=== PATIENT | male | born 1955 | race Caucasian/White ===

== ENCOUNTER 2016-09-24 09:54 | Observation (INO) | payer OTHER ==
[2016-09-24 10:06] VITALS: BMI 35.9
[2016-09-24 10:20] VITALS: TEMP 98.4
[2016-09-24] MEDS ORDERED: Nitroglycerin 2% Ointment Foilpak UD TOP STA (10:29)
[2016-09-24] MEDS ORDERED: Nitroglycerin 2% Ointment Foilpak UD TOP ONE (10:34)
[2016-09-24] MEDS ORDERED: Enoxaparin 40 mg Syringe SC STA (10:36)
[2016-09-24 10:43] LABS: BASO # 0.1 K/uL (0.0-0.2); HEMATOCRIT 37.1 % (35.0-51.0); LYMPH # 2.2 K/uL (1.0-4.3)
[2016-09-24 10:51] LABS: BASO % 0.9 % (0.0-2.0); EOS % 8.7 % (0.0-4.0); LYMPH % 19.9 % (20.0-40.0); MEAN CORPUSCULAR HEMOGLOBIN 22.2 pg (27.0-31.0); MEAN CORPUSCULAR HGB CONC 31.7 g/dL (33.0-37.0); MONO # 0.8 K/uL (0.0-0.8); MONO % 7.1 % (0.0-10.0); RED CELL DISTRIBUTION WIDTH 21.5 % (11.5-14.5); WHITE BLOOD COUNT 10.9 K/uL (4.8-10.8)
[2016-09-24 10:53] LABS: MEAN CELL VOLUME 70.1 fL (80.0-94.0)
--- NOTE | 2016-09-24 10:56 | RAD ---
HISTORY: SOB COMPARISON: Chest x-ray performed 01/31/16 TECHNIQUE: Chest, one view. FINDINGS: LUNGS: No focal consolidation. Please note that chest x-ray has limited sensitivity for the detection of pulmonary masses. PLEURA: No significant pleural effusion identified. No definite pneumothorax . CARDIOVASCULAR: Cardiomegaly. Ectatic aorta. OSSEOUS STRUCTURES: Acromioclavicular arthropathy. VISUALIZED UPPER ABDOMEN: Unremarkable. OTHER FINDINGS: None. IMPRESSION: Cardiomegaly. No focal consolidation, significant pleural effusion, or definite pneumothorax identified.
--- NOTE | 2016-09-24 10:58 | C.PDOC ---
History Of Present Illness 61 y/o male presents to the ED complaining of left substernal chest pressure that started at his dialysis treatment today. EMS reports patient given Aspirin PO and Nitropaste. Patient states treatment brought pain from an 8 to a 4 on a scale of 1 to 10. Denies any shortness of breath, nausea, vomiting, fever, chills, or other complaints. Time Seen by Provider: 09/24/16 10:23 Chief Complaint (Nursing): Chest Pain History Per: Patient, EMS History/Exam Limitations: no limitations Onset/Duration Of Symptoms: Mins, Gradual, Persistent Current Symptoms Are (Timing): Still Present Quality: Pressure Recent travel outside of the [place]: No Past Medical History Reviewed: Historical Data, Nursing Documentation, Vital Signs Vital Signs: Last Vital Signs Temp 98.4 F 09/24/16 10:17 Pulse 76 09/24/16 11:19 Resp 18 09/24/16 11:19 BP 189/109 H 09/24/16 11:19 Pulse Ox 100 09/24/16 12:02 - Medical History PMH: Anemia, Diabetes, HTN, Chronic Kidney Disease Surgical History: No Surg Hx - [facility] Procedures DIALYSIS ARTERIOVENOSTOM (02/26/15) FLUOROSCOPY OF RIGHT JUGULAR VEINS, GUIDANCE (01/27/16) INSERT INFUSION DEV IN R INT JUGULAR VEIN, PERC (01/27/16) PERFORMANCE OF URINARY FILTRATION, MULTIPLE (01/27/16) TRANSFUSE NONAUT RED BLOOD CELLS IN PERIPH VEIN, PERC (01/27/16) Family History: States: Unknown Family Hx - Social History Hx Tobacco Use: No Hx Alcohol Use: No Hx Substance Use: No - Immunization History Hx Tetanus Toxoid Vaccination: No Hx Influenza Vaccination: Yes (03/14/16) Hx Pneumococcal Vaccination: No Review Of Systems Except As Marked, All Systems Reviewed And Found Negative. Constitutional: Negative for: Fever, Chills Cardiovascular: Positive for: Chest Pain (pressure) Respiratory: Negative for: Shortness of Breath Gastrointestinal: Negative for: Nausea, Vomiting Physical Exam - Physical Exam Appears: Non-toxic, No Acute Distress Skin: Normal Color, Warm, Dry, No Rash Head: Atraumatic, Normacephalic Eye(s): bilateral: Normal Inspection, PERRL Oral Mucosa: Moist Neck: Normal ROM, Supple Chest: Symmetrical, No Tenderness Cardiovascular: Rhythm Regular Respiratory: Normal Breath Sounds, No Rales, No Rhonchi, No Wheezing Gastrointestinal/Abdominal: Normal Exam, Soft, No Tenderness, Other (obese) Extremity: Normal ROM, No Swelling Neurological/Psych: Oriented x3, Normal Speech, Normal Cognition ED Course And Treatment - Laboratory Results Result Diagrams: 09/24/16 10:33 09/24/16 11:11 Lab Interpretation: Abnormal (c/w ESRD on HD *? if HD today- normal K+) ECG: Interpreted By Me ECG Rhythm: Sinus Rhythm ECG Interpretation: Normal Rate From EC (bpm) O2 Sat by Pulse Oximetry: 100 (ra) Pulse Ox Interpretation: Normal - Radiology CXR: Interpreted by Me CXR Interpretation: Yes: No Acute Disease, Cardiomegaly Reevaluation Time: 11:56 Reassessment Condition: Improved - Physician Consult Information Outcome Of Conversation: 1145: d/w PMD Mariam Ford to adm to [facility] for this [facility] pt. HD as able. 1200: d/w Hospitalists- Dr. Bhaskar maradiaga to obs. Medical Decision Making Medical Decision Making: Plan: * EKG * CXR * Labs * Catapres, Lovenox, Nitroglycerin 2% chest pressure/angina with elevated BP during HD, pending HD normal trop today. Disposition Doctor Will See Patient In The: Hospital Counseled Patient/Family Regarding: Studies Performed, Diagnosis - Disposition Disposition: HOSPITALIZED Disposition Time: 11:57 Condition: GOOD - Clinical Impression Clinical Impression: ESRD (end stage renal disease) on dialysis, Chest discomfort, Angina at rest, Hypertension - Scribe Statement The provider has reviewed the documentation as recorded by the Scribe (Gladis Roper) Provider Attestation: All medical record entries made by the Scribe were at my direction and personally dictated by me. I have reviewed the chart and agree that the record accurately reflects my personal performance of the history, physical exam, medical decision making, and the department course for this patient. I have also personally directed, reviewed, and agree with the discharge instructions and disposition.
[2016-09-24] MEDS ORDERED: Albuterol-Ipratrop 3 mg / 0.5 (3 ml) UD ONE (11:18)
[2016-09-24] MEDS ORDERED: Enoxaparin 60 mg Syringe ONE (11:23)
[2016-09-24] MEDS ORDERED: Enoxaparin 40 mg Syringe ONE (11:23)
[2016-09-24 11:27] LABS: BILIRUBIN,TOTAL 3.4 mg/dL (0.2-1.3); TOTAL PROTEIN 9.6 g/dL (6.3-8.3)
[2016-09-24 11:28] LABS: CALCIUM 9.2 mg/dl (8.6-10.4)
[2016-09-24 11:40] LABS: TROPONIN I 0.052 ng/mL (0.00-0.120)
--- NOTE | 2016-09-24 13:47 | CP.PCM.PN ---
<AbdirahmanDarya - Last Filed: 09/24/16 13:42> Subjective - Date & Time of Evaluation Date of Evaluation: 09/24/16 Time of Evaluation: 13:00 - Subjective Subjective: PGY I note for Dr. Nayak: Patient accepted onto hospitalist service for and episode of chest pain during dialysis. The patient stated that he would rather not stay in the hospital to check his heart and cardiac enzymes. He had no complaints on evaluation and stated the chest pain had resolved. Despite explaining his risks and benefits of staying in the hospital to rule out events such as AK, the patient decided to sign out against medical advice. AMA form was signed by him and was placed in his chart. Patient was instructed to follow up with his PMD (Dr. Hernadez) and his Dough Molder (Dr. Brown). Objective - Vital Signs/Intake and Output Vital Signs (last 24 hours): Temp Pulse Resp BP Pulse Ox 98.4 F 88 20 134/79 100 09/24/16 10:17 09/24/16 12:40 09/24/16 12:40 09/24/16 12:40 09/24/16 12:40 <Mikey Nayak - Last Filed: 09/24/16 15:16> Objective - Vital Signs/Intake and Output Vital Signs (last 24 hours): Temp Pulse Resp BP Pulse Ox 98.4 F 69 18 142/87 96 09/24/16 13:56 09/24/16 14:43 09/24/16 14:43 09/24/16 14:43 09/24/16 14:43 Attending/Attestation - Attestation I have personally seen and examined this patient.: Yes I have fully participated in the care of the patient.: Yes I have reviewed all pertinent clinical information, including history, physical exam and plan: Yes Notes (Text): 09/24/16 15:15 Medical Attending: Patient was seen and examined in the ER - he just does not want to stay. He wanted to sign out. He does have risk factors but he reported he felt well and wanted to go. thank you Mikey Nayak
[2016-09-24 13:57] VITALS: RESP 18
[2016-09-24 14:44] VITALS: BP 142/87; PULSE 69; O2SAT 96
--- NOTE | 2016-09-25 11:50 | CARD ---
APPROVED REPORT EKG Measurement Heart [id number] <Conclusion> Normal sinus rhythm Moderate voltage criteria for LVH, may be normal variant Inferior infarct, age undetermined Abnormal ECG
== END 2016-09-24 14:46 | disposition left against medical advice (07) ==
LOC: C.ER 09:54 → C.9E 11:58 → C.6T 15:20 → C.9E 15:20 → C.6T 20:26
PROVIDERS: ADMIT Hospitalist; ATTEND Hospitalist
DX: I12.0 Hypertensive chronic kidney disease with stage 5 chronic kidney disease or end stage renal disease (principal); N18.6 End stage renal disease; Z99.2 Dependence on renal dialysis; E11.22 Type 2 diabetes mellitus with diabetic chronic kidney disease; Z68.35 Body mass index [BMI] 35.0-35.9, adult
CPT/HCPCS: 71010; 80053; 83880; 84484; 85025; 96372; G0378; J1650

== ENCOUNTER 2017-02-05 06:56 | Day surgery (SDC) | payer MEDICARE, OTHER ==
[2017-02-05 07:30] VITALS: BMI 31.6
[2017-02-05] MEDS ORDERED: Propofol 10 mg/ml Inj (20 ML) ONE (09:42)
[2017-02-05] MEDS ORDERED: Sodium Chloride 0.9% 1,000 ML IV SCH (09:45)
[2017-02-05 17:25] VITALS: TEMP 96.8
[2017-02-05 17:36] VITALS: BP 139/72; PULSE 65; RESP 16; O2SAT 99
== END 2017-02-05 11:40 | disposition home or self-care (01) ==
LOC: C.ENDO 06:56
PROVIDERS: ATTEND Internal Medicine Gastroenterology
DX: K57.90 Diverticulosis of intestine, part unspecified, without perforation or abscess without bleeding (principal); Q43.8 Other specified congenital malformations of intestine; K64.2 Third degree hemorrhoids
CPT/HCPCS: 36415; 45378; 82948; J2704; J7040

== ENCOUNTER 2017-02-22 17:48 | Emergency (ER) | payer MEDICARE, OTHER ==
[2017-02-22 17:48] VITALS: BMI 31.6
--- NOTE | 2017-02-22 18:06 | C.PDOC ---
History Of Present Illness 62 yr old male brought in via BLS, with PMHx of insulin dependent diabetes and is on dialysis (M/W/F), presents to the ER accompanied by daughter with complaints of "not feeling well". Daughter reports the patient had his normal breakfast and afterwards started to complain of not feeling well and went for a nap. Patient woke from nap and was still complaining of not feeling well. Daughter states the patient was cold on touch. Upon arrival of EMS, patient was lethargic and diaphoretic. Finger stick was 53 and patient was given 1AMP of D50. Denies fever, chest pain, SOB, nausea, vomiting, abdominal pain, diarrhea, headache, weakness or numbness. PMD: Dr. Gonzales. 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 ) Past Medical History Reviewed: Historical Data, Nursing Documentation, Vital Signs Vital Signs: Last Vital Signs Temp 97.9 F 02/22/17 20:37 Pulse 66 02/22/17 20:37 Resp 12 02/22/17 20:37 BP 123/69 02/22/17 20:37 Pulse Ox 98 02/22/17 20:37 - Medical History PMH: Anemia, Diabetes, HTN, Hypercholesterolemia, Chronic Kidney Disease - [facility] Procedures DIALYSIS ARTERIOVENOSTOM (02/26/15) FLUOROSCOPY OF RIGHT JUGULAR VEINS, GUIDANCE (01/27/16) INSERT INFUSION DEV IN R INT JUGULAR VEIN, PERC (01/27/16) PERFORMANCE OF URINARY FILTRATION, MULTIPLE (01/27/16) TRANSFUSE NONAUT RED BLOOD CELLS IN PERIPH VEIN, PERC (01/27/16) Family History: States: No Known Family Hx - Social History Hx Tobacco Use: No Hx Alcohol Use: No Hx Substance Use: No - Immunization History Hx Tetanus Toxoid Vaccination: No Hx Influenza Vaccination: Yes (03/14/16) Hx Pneumococcal Vaccination: No Review Of Systems Except As Marked, All Systems Reviewed And Found Negative. Constitutional: Negative for: Fever Cardiovascular: Negative for: Chest Pain Respiratory: Negative for: Shortness of Breath Gastrointestinal: Negative for: Nausea, Vomiting, Abdominal Pain, Diarrhea Neurological: Negative for: Weakness, Numbness, Headache Physical Exam - Physical Exam Appears: Non-toxic, No Acute Distress Skin: Warm, Dry, No Rash Head: Atraumatic, Normacephalic Eye(s): bilateral: PERRL, EOMI, Other (Conjuctival injection. ) Oral Mucosa: Moist Neck: Normal, Normal ROM, Supple Chest: Symmetrical, No Tenderness Cardiovascular: Rhythm Regular, No Murmur Respiratory: Normal Breath Sounds, No Rales, No Rhonchi, No Wheezing Gastrointestinal/Abdominal: Normal Exam, Soft, No Tenderness, No Guarding, No Rebound Extremity: Normal ROM, No Swelling Neurological/Psych: Oriented x3, Normal Speech, Normal Motor ED Course And Treatment - Laboratory Results Result Diagrams: 02/22/17 18:47 02/22/17 18:33 O2 Sat by Pulse Oximetry: 100 Medical Decision Making Medical Decision Making: PLAN: * CXR * VBG * Troponin * CBC * CMP Patient feeling better, temp wnl, FS wnl, requesting d/c. Will come to HD tomorrow. Disposition Counseled Patient/Family Regarding: Studies Performed, Diagnosis - Disposition Disposition: HOME/ ROUTINE Disposition Time: 20:41 Condition: STABLE Instructions: Diabetic Hypoglycemia (ED) Forms: [employer] (Tajik) - POA Present On Arrival: None - Clinical Impression Clinical Impression: Hypoglycemia - Scribe Statement The provider has reviewed the documentation as recorded by the Efrainibritika Ritchie Provider Attestation: All medical record entries made by the Efrainibritika were at my direction and personally dictated by me. I have reviewed the chart and agree that the record accurately reflects my personal performance of the history, physical exam, medical decision making, and the department course for this patient. I have also personally directed, reviewed, and agree with the discharge instructions and disposition.
[2017-02-22 18:49] LABS: CHLORIDE 94 mmol/L (98-107); POTASSIUM 4.6 mmol/L (3.6-5.2); SODIUM 139 mmol/L (132-148)
[2017-02-22 18:52] LABS: ALB/GLOB RATIO 1.2 (1.0-2.1); ALKALINE PHOSPHATASE 111 U/L (38-126); ALT/SGPT 42 U/L (21-72); AST/SGOT 25 U/L (17-59); BILIRUBIN,TOTAL 0.6 mg/dL (0.2-1.3); BLOOD UREA NITROGEN 95 mg/dL (9-20); CALCIUM 8.5 mg/dl (8.6-10.4); CARBON DIOXIDE 20 mmol/L (22-30); GLUCOSE,RANDOM 131 mg/dL (75-110); TOTAL PROTEIN 7.2 g/dL (6.3-8.3)
[2017-02-22 18:52] LABS: BASO % 0.4 % (0.0-2.0); EOS # 0.3 K/uL (0.0-0.7); EOS % 4.5 % (0.0-4.0); HEMATOCRIT 35.7 % (35.0-51.0); LYMPH # 1.2 K/uL (1.0-4.3); LYMPH % 15.7 % (20.0-40.0); MEAN CELL VOLUME 73.7 fL (80.0-94.0); MEAN CORPUSCULAR HEMOGLOBIN 22.6 pg (27.0-31.0); MEAN CORPUSCULAR HGB CONC 30.6 g/dL (33.0-37.0); MEAN PLATELET VOLUME 8.9 fL (7.2-11.7); MONO # 0.5 K/uL (0.0-0.8); MONO % 7.1 % (0.0-10.0); RED CELL DISTRIBUTION WIDTH 17.8 % (11.5-14.5); WHITE BLOOD COUNT 7.5 K/uL (4.8-10.8)
[2017-02-22 19:05] VITALS: RESP 12
[2017-02-22 19:05] LABS: GFR AFRICAN-AMERICAN 4
[2017-02-22 20:38] VITALS: BP 123/69; PULSE 66; TEMP 97.9
[2017-02-22 20:42] VITALS: O2SAT 100
--- NOTE | 2017-02-23 09:45 | RAD ---
HISTORY: Sepsis Patient COMPARISON: 09/24/2016 new FINDINGS: LUNGS: No active pulmonary disease. PLEURA: No significant pleural effusion identified, no pneumothorax apparent. CARDIOVASCULAR: Normal. OSSEOUS STRUCTURES: No significant abnormalities. VISUALIZED UPPER ABDOMEN: Normal. OTHER FINDINGS: None. IMPRESSION: No active disease.
--- NOTE | 2017-02-25 14:24 | CARD ---
APPROVED REPORT EKG Measurement Heart [id number] <Conclusion> Normal sinus rhythm Minimal voltage criteria for LVH, may be normal variant Prolonged QT Abnormal ECG
== END 2017-02-22 20:53 | disposition home or self-care (01) ==
LOC: C.ER 17:48
DX: E11.649 Type 2 diabetes mellitus with hypoglycemia without coma (principal); Z79.4 Long term (current) use of insulin

== ENCOUNTER 2017-05-06 06:17 | Inpatient (IN) | payer MEDICARE, OTHER ==
[2017-05-06 06:17] VITALS: BMI 31.6
[2017-05-06 07:08] LABS: MEAN CELL VOLUME 75.2 fL (80.0-94.0); MONO # 0.6 K/uL (0.0-0.8)
[2017-05-06 07:22] LABS: BILIRUBIN,TOTAL 0.8 mg/dL (0.2-1.3)
[2017-05-06 07:23] LABS: CALCIUM 9.4 mg/dl (8.6-10.4); TOTAL PROTEIN 8.2 g/dL (6.3-8.3)
[2017-05-06 07:26] LABS: BASO % 0.4 % (0.0-2.0); EOS % 0.6 % (0.0-4.0); HEMATOCRIT 34.2 % (35.0-51.0); LYMPH # 1.2 K/uL (1.0-4.3); LYMPH % 14.7 % (20.0-40.0); MEAN CORPUSCULAR HEMOGLOBIN 22.8 pg (27.0-31.0); MEAN CORPUSCULAR HGB CONC 30.3 g/dL (33.0-37.0); MEAN PLATELET VOLUME 8.4 fL (7.2-11.7); RED CELL DISTRIBUTION WIDTH 18.3 % (11.5-14.5)
[2017-05-06 07:29] LABS: POTASSIUM 4.9 mmol/L (3.6-5.2)
--- NOTE | 2017-05-06 07:33 | C.PDOC ---
History Of Present Illness Patient is a 62 y/o M with ESRD on HD MWF, DM, presenting with altered mental status. Family reports that they last saw patient well at 9pm. They report that they found him in the couch this morning (where he normally sleeps) altered. Patient was found to be AAox2, lethargic with FS:47. Patient was given amp d50 and on arrival FS:124. On physician arrival, patient is AAox3 and has no complaints. Unable to state if on oral hypoglycemics PMD: Dr. Gonzales Renal: Dr. Brown Time Seen by Provider: 05/06/17 07:06 Chief Complaint (Nursing): Altered Mental Status Past Medical History Vital Signs: Last Vital Signs Temp 97.7 F 05/06/17 09:44 Pulse 77 05/06/17 09:44 Resp 16 05/06/17 09:44 BP 170/83 H 05/06/17 09:44 Pulse Ox 98 05/06/17 09:44 - Medical History PMH: Anemia, Diabetes, HTN, Hypercholesterolemia, Chronic Kidney Disease - [facility] Procedures DIALYSIS ARTERIOVENOSTOM (02/26/15) FLUOROSCOPY OF RIGHT JUGULAR VEINS, GUIDANCE (01/27/16) INSERT INFUSION DEV IN R INT JUGULAR VEIN, PERC (01/27/16) PERFORMANCE OF URINARY FILTRATION, MULTIPLE (01/27/16) TRANSFUSE NONAUT RED BLOOD CELLS IN PERIPH VEIN, PERC (01/27/16) Family History: States: Unknown Family Hx - Social History Hx Tobacco Use: No Hx Alcohol Use: No Hx Substance Use: No - Immunization History Hx Tetanus Toxoid Vaccination: No Hx Influenza Vaccination: Yes (03/14/16) Hx Pneumococcal Vaccination: No Review Of Systems Except As Marked, All Systems Reviewed And Found Negative. Constitutional: Negative for: Fever, Chills Cardiovascular: Negative for: Chest Pain, Palpitations Respiratory: Negative for: Cough, Shortness of Breath, SOB with Excertion, Wheezing Gastrointestinal: Negative for: Nausea, Vomiting, Abdominal Pain, Diarrhea, Constipation Genitourinary: Negative for: Dysuria Neurological: Positive for: Confusion, Altered Mental Status. Negative for: Seizures Physical Exam - Physical Exam Appears: Well, Non-toxic, No Acute Distress Skin: Normal Color, Warm, Dry Head: Atraumatic, Normacephalic Eye(s): bilateral: Normal Inspection, PERRL, EOMI Neck: Supple Cardiovascular: Rhythm Regular Respiratory: Normal Breath Sounds Gastrointestinal/Abdominal: Normal Exam, Soft, No Tenderness Back: Normal Inspection, No CVA Tenderness Extremity: Normal ROM, Other (L AV fistula to upper arm. +thrill) Neurological/Psych: Oriented x3, Normal Speech, Normal Cognition, Normal Cranial Nerves ED Course And Treatment - Laboratory Results Result Diagrams: 05/06/17 07:11 05/06/17 07:25 O2 Sat by Pulse Oximetry: 99 Medical Decision Making Medical Decision Making: Patient presented after episode of lethargy and hypoglycemia. Patient now AAox3 with no neurologic deficits, FS: 124 and then 76. Tolerating po in ED now. Hypothermic on arrival and estevan hugger placed. Will get q30min FS EKG shows NSR at 62bpm with QTc:499. No ST changes. Cxray negative for acute disease. CBC WNL. Lactate WNL. Bun/creatinine elevated as expected due to known ESRD on HD. Electrolytes grossly normal. Trop x 1 negative. Patient doesn 't make urine. Blood cx ordered. 8:24 FS:101. Still hypothermic but rectal temp improving. CT shows "No intracranial mass, hemorrhage or evidence of acute infarct. Remote right occipitotemporal and right inferior cerebellar hemispheric infarcts. Old left basal ganglia lacunar infarct." Spoke to Dr. Gonzales. Will admit to tele observation for episode of AMS, with hypothermia and hypoglycemia. Dr. Brown on for renal consult. Q2hour fs ordered as requested by PMD. Disposition - Disposition Disposition: HOSPITALIZED Disposition Time: 09:00 Condition: FAIR - Clinical Impression Clinical Impression: Hypothermia, Hypoglycemia, Altered mental status
[2017-05-06 07:36] LABS: TROPONIN I 0.034 ng/mL (0.00-0.120)
[2017-05-06 07:43] LABS: VENOUS BLOOD GAS BASE EXCESS 3.6 mmol/L (0.0-2.0); VENOUS BLOOD GAS PCO2 52 mmHg (40-60); VENOUS BLOOD PH 7.37 (7.32-7.43)
--- NOTE | 2017-05-06 08:55 | CT ---
PROCEDURE: CT HEAD WITHOUT CONTRAST. HISTORY: altered COMPARISON: 02/26/2015 TECHNIQUE: Axial computed tomography images were obtained through the head/brain without intravenous contrast. Radiation dose: Total exam DLP = 852.64 mGy-cm. This CT exam was performed using one or more of the following dose reduction techniques: Automated exposure control, adjustment of the mA and/or kV according to patient size, and/or use of iterative reconstruction technique. FINDINGS: HEMORRHAGE: No intracranial hemorrhage. BRAIN: No mass effect or edema. Old right temporal occipital infarct, unchanged from prior examination. . Old infarct medial inferior right cerebellar hemisphere, representing interval change from prior examination. Old lacunar infarct left lentiform nucleus. No evidence of acute infarct. VENTRICLES: Unremarkable. No hydrocephalus. CALVARIUM: Unremarkable. PARANASAL SINUSES: Unremarkable as visualized. No significant inflammatory changes. MASTOID AIR CELLS: Unremarkable as visualized. No inflammatory changes. OTHER FINDINGS: None. IMPRESSION: No intracranial mass, hemorrhage or evidence of acute infarct. Remote right occipitotemporal and right inferior cerebellar hemispheric infarcts. Old left basal ganglia lacunar infarct.
--- NOTE | 2017-05-06 11:27 | RAD ---
HISTORY: altered mental status COMPARISON: Chest x-ray performed 02/22/17 TECHNIQUE: Chest, one view. FINDINGS: LUNGS: Mild interstitial prominence may reflect infection or edema. No focal consolidation. Please note that chest x-ray has limited sensitivity for the detection of pulmonary masses. PLEURA: No significant pleural effusion identified. No definite pneumothorax . CARDIOVASCULAR: Cardiomegaly. Atherosclerotic calcifications of the aorta. OSSEOUS STRUCTURES: Degenerative changes. Osseous demineralization. Calcific tendinitis, right shoulder. VISUALIZED UPPER ABDOMEN: Unremarkable. OTHER FINDINGS: None. IMPRESSION: Mild interstitial prominence may reflect infection or edema. Cardiomegaly. Atherosclerotic calcifications of the aorta. Study has been marked for PA review.
--- NOTE | 2017-05-06 14:20 | CP.PCM.CON ---
History of Present Illness - History of Present Illness History of Present Illness: Patient is a 62 y/o M with ESRD on HD MWF, DM, presenting with altered mental status. Family reports that they last saw patient well at 9pm. They report that they found him in the couch this morning (where he normally sleeps) altered. Patient was found to be AAox2, lethargic with FS:47. Patient was given amp d50 and on arrival FS:124. On physician arrival, patient is AAox3 and has no complaints. Unable to state if on oral hypoglycemics S/P syncope from hypoglycemia Due for dialysis today PMH: ESRD DM 2 HTN DL S/P CVA PSH: AV FISTULA CATARACTS Review of Systems - Constitutional Constitutional: Lethargy, Weakness - EENT Eyes: absent: As Per HPI, Blind Spots, Blurred Vision, Change in Vision, Decreased Night Vision, Diplopia, Discharge, Dry Eye, Exophthalmos, Floaters, Irritation, Itchy Eyes, Loss of Peripheral Vision, Pain, Photophobia, Requires Corrective Lenses, Sees Flashes, Spots in Vision, Tunnel Vision, Other Visual Disturbances, Loss of Vision, Other Ears: absent: As Per HPI, Decreased Hearing, Ear Discharge, Ear Pain, Tinnitus, Abnormal Hearing, Disequilibrium, Dizziness, Other Nose/Mouth/Throat: absent: As Per HPI, Epistaxis, Nasal Congestion, Nasal Discharge, Nasal Obstruction, Nasal Trauma, Nose Pain, Post Nasal Drip, Sinus Pain, Sinus Pressure, Bleeding Gums, Change in Voice, Dental Pain, Dry Mouth, Dysphagia, Halitosis, Hoarsness, Lip Swelling, Mouth Lesions, Mouth Pain, Odynophagia, Sore Throat, Throat Swelling, Tongue Swelling, Facial Pain, Neck Pain, Neck Mass, Other - Cardiovascular Cardiovascular: absent: As Per HPI, Acrocyanosis, Chest Pain, Chest Pain at Rest , Chest Pain with Activity, Claudication, Diaphoresis, Dyspnea, Dyspnea on Exertion, Edema, Irregular Heart Rhythm, Pain Radiating to Arm/Neck/Jaw, Leg Edema, Leg Ulcers, Lightheadedness, Orthopnea, Palpitations, Paroxysmal Nocturnal Dyspnea, Pedal Edema, Radiating Pain, Rapid Heart Rate, Slow Heart Rate, Syncope, Other - Respiratory Respiratory: absent: As Per HPI, Cough, Dyspnea, Hemoptysis, Dyspnea on Exertion , Wheezing, Snoring, Stridor, Pain on Inspiration, Chest Congestion, Excessive Mucous Production, Change in Mucous Color, Pain with Coughing, Other - Gastrointestinal Gastrointestinal: absent: As Per HPI, Abdominal Pain, Belching, Bloating, Change in Bowel Habits, Change in Stool Character, Coffee Ground Emesis, Constipation, Cramping, Diarrhea, Dyspepsia, Dysphagia, Early Satiety, Excessive Flatus, Fecal Incontinence, Heartburn, Hematemesis, Hematochezia, Loose Stools, Melena, Nausea, Odynophagia, Temesmus, Vomiting, Other - Genitourinary Genitourinary: As Per HPI - Musculoskeletal Musculoskeletal: Muscle Cramps, Muscle Weakness - Integumentary Integumentary: absent: As Per HPI, Acne, Alopecia, Bleeding Lesions, Change in Hair, Change in Nails, Change in Pigmentation, Changing Lesions, Dry Skin, Erythema, Furuncle, Hirsutism, Lesions, New Lesions, Non-Healing Lesions, Photosensitivity, Pruritus, Rash, Skin Pain, Skin Ulcer, Sores, Striae, Swelling , Unusual Bruising, Wounds, Jaundice, Other - Neurological Neurological: Dizziness, Syncope Past Patient History - Infectious Disease Hx of Infectious Diseases: None - Past Medical History & Family History Past Medical History?: Yes - Past Social History Smoking Status: Former Smoker Chewing Tobacco Use: No Cigar Use: No Alcohol: None Drugs: Denies Home Situation {Lives}: With Family - CARDIAC Hx Hypercholesterolemia: Yes Hx Hypertension: Yes - PULMONARY Hx Respiratory Disorders: No - NEUROLOGICAL Hx Neurological Disorder: Yes HX Cerebrovascular Accident: Yes (FEBRUARY 2016) Hx Dizziness: Yes - HEENT Hx HEENT Problems: Yes Hx Cataracts: Yes - RENAL Hx Chronic Kidney Disease: Yes Hx Dialysis: Yes - ENDOCRINE/METABOLIC Hx Endocrine Disorders: Yes Hx Diabetes Mellitus Type 2: Yes - HEMATOLOGICAL/ONCOLOGICAL Hx Anemia: Yes - INTEGUMENTARY Hx Dermatological Problems: No - MUSCULOSKELETAL/RHEUMATOLOGICAL Hx Falls: No - GASTROINTESTINAL Hx Gastrointestinal Disorders: Yes - GENITOURINARY/GYNECOLOGICAL Hx Genitourinary Disorders: No - PSYCHIATRIC Hx Substance Use: No - SURGICAL HISTORY Hx Surgeries: Yes Hx Cataract Extraction: Yes (RT EYE) Hx Vascular Surgery: Yes (A/V FISTULA) Other/Comment: lt arm AV shunt - ANESTHESIA Hx Anesthesia: Yes Hx Anesthesia Reactions: No Hx Malignant Hyperthermia: No Meds Allergies/Adverse Reactions: Allergies Allergy/AdvReac Type Severity Reaction Status Date / Time No Known Allergies Allergy Verified 02/22/17 18:03 - Medications Medications: Current Medications Amlodipine Besylate (Norvasc) 10 mg PO DAILY [facility] Last Admin: 05/06/17 13:58 Dose: 10 mg Aspirin (Aspirin Chewable) 81 mg PO DAILY [facility] Calcium Acetate (Phoslo) 3 mg PO TID [facility] Gabapentin (Neurontin) 100 mg PO HS [facility] Heparin Sodium (Porcine) (Heparin) 5,000 units SC Q12 [facility] Hydralazine HCl (Apresoline) 25 mg PO DAILY [facility] Insulin Human Regular (Novolin R) 0 unit SC ACHS [facility] PRN Reason: Protocol Physical Exam - Constitutional Appears: No Acute Distress, Chronically Ill - Head Exam Head Exam: ATRAUMATIC, NORMAL INSPECTION - Eye Exam Eye Exam: EOMI, Normal appearance - Neck Exam Neck exam: Positive for: Normal Inspection. Negative for: Tenderness - Respiratory Exam Respiratory Exam: Clear to Auscultation Bilateral, NORMAL BREATHING PATTERN - Cardiovascular Exam Cardiovascular Exam: REGULAR RHYTHM, +S1 - GI/Abdominal Exam GI & Abdominal Exam: Soft. absent: Tenderness - Extremities Exam Extremities exam: Positive for: normal inspection. Negative for: tenderness - Neurological Exam Neurological exam: Alert, CN II-XII Intact - Skin Skin Exam: Dry, Warm Results - Vital Signs Recent Vital Signs: Last Vital Signs Temp 97.7 F 05/06/17 09:44 Pulse 77 05/06/17 09:44 Resp 16 05/06/17 09:44 BP 170/83 H 05/06/17 09:44 Pulse Ox 99 05/06/17 10:04 - Labs Result Diagrams: 05/06/17 07:11 05/06/17 07:25 Labs: Laboratory Results - last 24 hr 05/06/17 05/06/17 05/06/17 06:20 06:54 07:11 WBC 8.0 RBC 4.55 Hgb 10.4 L Hct 34.2 L MCV 75.2 L MCH 22.8 L MCHC 30.3 L RDW 18.3 H Plt Count 217 MPV 8.4 Neut % (Auto) 77.3 H Lymph % (Auto) 14.7 L [place] % (Auto) 7.0 Eos % (Auto) 0.6 Baso % (Auto) 0.4 Neut # 6.2 Lymph # 1.2 [place] # 0.6 Eos # 0.0 Baso # 0.0 PT 10.8 INR 1.0 APTT 34 pO2 VBG pH VBG pCO2 VBG HCO3 VBG Total CO2 VBG O2 Sat (Calc) VBG Base Excess VBG Potassium Glucose Lactate Sodium Potassium Chloride Carbon Dioxide Anion Gap BUN Creatinine Est GFR ( Amer) Est GFR (Non-Af Amer) POC Glucose (mg/dL) 124 H Random Glucose Calcium Total Bilirubin AST ALT Alkaline Phosphatase Total Creatine Kinase Troponin I Total Protein Albumin Globulin Albumin/Globulin Ratio Venous Blood Potassium 05/06/17 05/06/17 05/06/17 07:25 07:37 07:39 WBC RBC Hgb Hct MCV MCH MCHC RDW Plt Count MPV Neut % (Auto) Lymph % (Auto) [place] % (Auto) Eos % (Auto) Baso % (Auto) Neut # Lymph # [place] # Eos # Baso # PT INR APTT pO2 34 VBG pH 7.37 VBG pCO2 52 VBG HCO3 26.8 VBG Total CO2 31.7 H VBG O2 Sat (Calc) 66.9 H VBG Base Excess 3.6 H VBG Potassium 4.0 Glucose 94 Lactate 0.9 Sodium 141 141.0 Potassium 4.9 Chloride 95 L 106.0 Carbon Dioxide 29 Anion Gap 22 H BUN 77 H Creatinine 11.3 H* Est GFR ( Amer) 6 Est GFR (Non-Af Amer) 5 POC Glucose (mg/dL) 76 Random Glucose 111 H Calcium 9.4 Total Bilirubin 0.8 AST 41 ALT 76 H D Alkaline Phosphatase 145 H Total Creatine Kinase 59 Troponin I 0.0340 Total Protein 8.2 Albumin 4.1 Globulin 4.1 H Albumin/Globulin Ratio 1.0 Venous Blood Potassium 4.0 05/06/17 05/06/17 05/06/17 08:16 09:17 11:39 WBC RBC Hgb Hct MCV MCH MCHC RDW Plt Count MPV Neut % (Auto) Lymph % (Auto) [place] % (Auto) Eos % (Auto) Baso % (Auto) Neut # Lymph # [place] # Eos # Baso # PT INR APTT pO2 VBG pH VBG pCO2 VBG HCO3 VBG Total CO2 VBG O2 Sat (Calc) VBG Base Excess VBG Potassium Glucose Lactate Sodium Potassium Chloride Carbon Dioxide Anion Gap BUN Creatinine Est GFR ( Amer) Est GFR (Non-Af Amer) POC Glucose (mg/dL) 107 132 H 215 H Random Glucose Calcium Total Bilirubin AST ALT Alkaline Phosphatase Total Creatine Kinase Troponin I Total Protein Albumin Globulin Albumin/Globulin Ratio Venous Blood Potassium Assessment & Plan (1) Syncope Status: Acute (2) Type 2 diabetes mellitus with diabetic nephropathy Status: Acute (3) End stage renal disease Status: Acute (4) CVA (cerebrovascular accident) Status: Acute (5) Fluid overload Status: Acute (6) Hypoglycemia Status: Acute - Assessment and Plan (Free Text) Plan: Avoid oral antihyperglycemics DM management Dialysis now- adequate fluid removal; then MWF
[2017-05-06] MEDS: (Novolin R) Insulin Human Regular 100 units/ml vial SC SCH ×2 (21:15→23:08)
[2017-05-07] MEDS: (Novolin R) Insulin Human Regular 100 units/ml vial SC SCH ×3 (08:20→18:32)
--- NOTE | 2017-05-07 10:03 | HP ---
HISTORY OF PRESENT ILLNESS: This is a 62-year-old male with history of end-stage renal disease on hemodialysis, was found unconscious at home. The patient was brought to emergency room and on the scene he was found to have hypoglycemia and hypothermia. The patient was given D50 and the patient regained consciousness. The patient had similar hypoglycemia episodes before. The patient stated that he took his insulin and he only ate a late supper that night. The patient denied to have any fever, no urinary or respiratory symptoms. There are no other symptoms suggestive of infection. REVIEW OF SYSTEMS: Other review of systems negative. ALLERGIES: NO KNOWN ALLERGY. HOME MEDICATIONS: Hydralazine 25 mg 3 times a day, metolazone 5 mg daily, Levemir 12 units twice a day, Neurontin 100 mg 3 times a day, PhosLo 3 capsules 3 times a day, simvastatin 40 mg daily, nateglinide 60 mg 3 times a day, amlodipine 10 mg daily. PAST MEDICAL HISTORY: Hypertension, type 2 diabetes mellitus, end-stage renal disease, on hemodialysis. SOCIAL HISTORY: No history of smoking, EtOH, or substance abuse. FAMILY HISTORY: Noncontributory. PHYSICAL EXAMINATION: GENERAL: The patient is in bed, comfortable, not in any cardiopulmonary distress. VITAL SIGNS: With blood pressure 168/87, temperature initially was 93.2 and came up to 98.2, respiratory rate 18, pulse 77. HEENT: Pupils equal, reactive to light. Normal-appearing mucosa of the conjunctivae, oropharynx, and nasal membrane mucosa. NECK: Supple. No JVD. No carotid bruit. No lymph node. No thyromegaly. CHEST AND LUNGS: Bilateral symmetrical expansion. Good air exchange. No rales, no rhonchi. CARDIOVASCULAR SYSTEM: PMI not localized. S1, S2. No additional sounds. ABDOMEN: Normoactive bowel sounds. No tenderness. No organomegaly. No masses. EXTREMITIES: No cyanosis or clubbing. No edema. CENTRAL NERVOUS SYSTEM: Alert, awake, oriented x3. No neurological deficit could be appreciated. ASSESSMENT: 1. Hypoglycemia, likely secondary to lack of regular meal as the patient continued to take his insulin dose. 2. End-stage renal disease, on hemodialysis. 3. Hypertension. 4. Type 2 diabetes mellitus. PLAN: Continue Accu-Cheks every 2 hours and hold the diabetes medications. Renal consult for dialysis. [facility] MD [facility] # [id number]
--- NOTE | 2017-05-07 10:43 | CP.PCM.PN ---
Subjective - Date & Time of Evaluation Date of Evaluation: 05/07/17 Time of Evaluation: 10:41 - Subjective Subjective: alert stable dialysis 05/06 BSs stable now HTN elevated Objective - Vital Signs/Intake and Output Vital Signs (last 24 hours): Temp Pulse Resp BP Pulse Ox 97.8 F 70 20 164/90 H 96 05/07/17 07:25 05/07/17 08:33 05/07/17 07:25 05/07/17 08:33 05/07/17 07:25 - Medications Medications: Current Medications Amlodipine Besylate (Norvasc) 10 mg PO DAILY [facility] Last Admin: 05/07/17 10:00 Dose: 10 mg Aspirin (Aspirin Chewable) 81 mg PO DAILY [facility] Last Admin: 05/07/17 10:00 Dose: 81 mg Calcium Acetate (Phoslo) 2,001 mg PO TIDCC [facility] Last Admin: 05/07/17 08:19 Dose: 2,001 mg Gabapentin (Neurontin) 100 mg PO HS [facility] Last Admin: 05/06/17 21:36 Dose: 100 mg Heparin Sodium (Porcine) (Heparin) 5,000 units SC Q12 [facility] Last Admin: 05/07/17 10:02 Dose: 5,000 units Hydralazine HCl (Apresoline) 25 mg PO DAILY [facility] Last Admin: 05/07/17 10:00 Dose: 25 mg Insulin Human Regular (Novolin R) 0 unit SC ACHS [facility] PRN Reason: Protocol Last Admin: 05/07/17 08:20 Dose: Not Given - Labs Labs: 05/06/17 07:11 05/06/17 07:25 PT 10.8 SECONDS (9.7-12.2) 05/06/17 06:54 INR 1.0 05/06/17 06:54 APTT 34 SECONDS (21-34) 05/06/17 06:54 - Constitutional Appears: No Acute Distress, Chronically Ill - Head Exam Head Exam: ATRAUMATIC, NORMAL INSPECTION - Eye Exam Eye Exam: EOMI, Normal appearance - Neck Exam Neck Exam: Normal Inspection. absent: Tenderness - Respiratory Exam Respiratory Exam: Clear to Ausculation Bilateral, NORMAL BREATHING PATTERN - Cardiovascular Exam Cardiovascular Exam: REGULAR RHYTHM, +S1 - GI/Abdominal Exam GI & Abdominal Exam: Soft. absent: Tenderness - Extremities Exam Extremities Exam: Normal Inspection. absent: Pedal Edema, Tenderness - Neurological Exam Neurological Exam: Awake, CN II-XII Intact - Skin Skin Exam: Dry, Warm Assessment and Plan (1) Syncope Status: Acute (2) Type 2 diabetes mellitus with diabetic nephropathy Status: Acute (3) End stage renal disease Status: Acute (4) CVA (cerebrovascular accident) Status: Acute (5) Fluid overload Status: Acute (6) Hypoglycemia Status: Acute - Assessment and Plan (Free Text) Plan: Dialysis MWF Avoid oral antihyperglycemics Increase BP meds
[2017-05-07 16:05] VITALS: BP 156/86; PULSE 66; RESP 18; TEMP 97.7; O2SAT 97
--- NOTE | 2017-05-07 16:49 | RAD ---
HISTORY: Shortness of breath. COMPARISON: May 06, 2017. TECHNIQUE: Chest PA and lateral FINDINGS: LUNGS: No active pulmonary disease. PLEURA: No significant pleural effusion identified. No pneumothorax apparent. CARDIOVASCULAR: Cardiomegaly. No evidence of acute, significant cardiovascular disease. OSSEOUS STRUCTURES: No significant abnormalities. VISUALIZED UPPER ABDOMEN: Normal. OTHER FINDINGS: None. IMPRESSION: No active pulmonary disease. Cardiomegaly without florid CHF.
--- NOTE | 2017-05-07 17:47 | CP.PCM.PN ---
Subjective - Date & Time of Evaluation Date of Evaluation: 05/07/17 Time of Evaluation: 17:42 - Subjective Subjective: PT SEEN AND EXAMINED TODAY BY DR HORTON, RESP EASY AND UNLABORED. NAD, DENIES ANY CP, SOB, DIZZINESS. Objective - Vital Signs/Intake and Output Vital Signs (last 24 hours): Temp Pulse Resp BP Pulse Ox 97.7 F 66 18 156/86 H 97 05/07/17 16:00 05/07/17 16:00 05/07/17 16:00 05/07/17 16:00 05/07/17 16:00 Intake and Output: 05/07/17 05/07/17 06:59 18:59 Intake Total 240 Balance 240 - Medications Medications: Current Medications Amlodipine Besylate (Norvasc) 10 mg PO DAILY [facility] Last Admin: 05/07/17 10:00 Dose: 10 mg Aspirin (Aspirin Chewable) 81 mg PO DAILY [facility] Last Admin: 05/07/17 10:00 Dose: 81 mg Calcium Acetate (Phoslo) 2,001 mg PO TIDCC [facility] Last Admin: 05/07/17 12:15 Dose: 2,001 mg Gabapentin (Neurontin) 100 mg PO HS [facility] Last Admin: 05/06/17 21:36 Dose: 100 mg Heparin Sodium (Porcine) (Heparin) 5,000 units SC Q12 [facility] Last Admin: 05/07/17 10:02 Dose: 5,000 units Hydralazine HCl (Apresoline) 25 mg PO BID [facility] Insulin Human Regular (Novolin R) 0 unit SC ACHS [facility] PRN Reason: Protocol Last Admin: 05/07/17 11:53 Dose: Not Given - Labs Labs: 05/06/17 07:11 05/06/17 07:25 PT 10.8 SECONDS (9.7-12.2) 05/06/17 06:54 INR 1.0 05/06/17 06:54 APTT 34 SECONDS (21-34) 05/06/17 06:54 Assessment and Plan - Assessment and Plan (Free Text) Plan: 62 Y/O MALE WITH PMHX DM II, HD MWF, ESRD. ADMITTED FOR AMS, BS 47, D50 GIVEN CARPET CLEANER, BS: 124, AAOX3, STABLE, NO EPISODE HYPOGLYCEMIA WHILE ADMITTED, HD DONE, ADVISED AVOID ORAL HYPOGLYCEMIC, CONTINUE HD, FOLLOW UP WITH DR CLIFFORD IN THE OFFICE, RETURN TO ER FOR WORSENING S/S, AGREE, VERBALIZE UNDERSTANDING P
--- NOTE | 2017-05-08 05:39 | DS ---
REASON FOR ADMISSION: This is a 62-year-old male with history of multiple medical problems including end-stage renal disease on hemodialysis and uncontrolled type 2 diabetes mellitus presented to emergency room after he was found unconscious secondary to hypoglycemia. COURSE OF HOSPITALIZATION: The patient was brought to the hospital and he regained consciousness after he was given D50. 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 The patient had frequent Accu-Cheks while he was in the hospital and blood sugar was well maintained above 150. The patient was discharged home after he was counseled regarding his diet and insulin regimen and to follow up with his primary care physician Dr. Gonzales in 2 weeks and to follow with dialysis also. FINAL DIAGNOSES: 1. Acute change of mental status/metabolic encephalopathy secondary to hypoglycemia. 2. Type 2 diabetes mellitus. 3. Hypertension. 4. End-stage renal disease, on hemodialysis. [facility] MD Christian
--- NOTE | 2017-05-08 16:50 | CARD ---
APPROVED REPORT EKG Measurement Heart [id number] <Conclusion> Normal sinus rhythm Prolonged QT Abnormal ECG
== END 2017-05-07 19:34 | disposition home or self-care (01) | DRG 637 ==
LOC: C.ER 06:17 → OBSVTOIN 08:58 → C.9E 08:58 → C.6T 09:21
PROVIDERS: ADMIT Internal Medicine; ATTEND Internal Medicine
PROC: 5A1D70Z Performance of Urinary Filtration, Intermittent, Less than 6 Hours Per Day (ICD-10-PCS; principal; 2017-05-06)
DX: E11.649 Type 2 diabetes mellitus with hypoglycemia without coma (principal); G93.41 Metabolic encephalopathy; N18.6 End stage renal disease; E11.21 Type 2 diabetes mellitus with diabetic nephropathy; E87.70 Fluid overload, unspecified; E11.22 Type 2 diabetes mellitus with diabetic chronic kidney disease; I12.9 Hypertensive chronic kidney disease with stage 1 through stage 4 chronic kidney disease, or unspecified chronic kidney disease; R68.0 Hypothermia, not associated with low environmental temperature; I70.0 Atherosclerosis of aorta; I51.7 Cardiomegaly; E78.00 Pure hypercholesterolemia, unspecified; Z79.4 Long term (current) use of insulin; Z79.899 Other long term (current) drug therapy; Z86.73 Personal history of transient ischemic attack (TIA), and cerebral infarction without residual deficits; Z87.891 Personal history of nicotine dependence; Z99.2 Dependence on renal dialysis

== ENCOUNTER 2017-09-17 07:04 | Day surgery (SDC) | payer MEDICARE, OTHER ==
[2017-09-17 07:55] VITALS: TEMP 99.3
[2017-09-17] MEDS ORDERED: Propofol 10 mg/ml Inj (20 ML) ONE (09:28)
[2017-09-17] MEDS ORDERED: Lactated Ringer's 1,000 ML IV ONE (09:30)
--- NOTE | 2017-09-17 09:31 | CP.SDSHP ---
Same Day Surgery H & P - History Proposed Procedure: colonoscopy Pre-Op Diagnosis: screening - Previous Medical/Surgical History Cardiac: Hypertension Endocrine/Metabolic: Diabetes Comments: ESRD - Allergies Allergies: Allergies No Known Allergies Allergy (Verified 02/22/17 18:03) - Physical Exam General Appearance: NAD Vital Signs: Vital Signs 09/17/17 07:35 Temperature 99.3 F Pulse Rate 69 Respiratory 19 Rate Blood Pressure 163/72 H O2 Sat by Pulse 100 Oximetry Mental Status: Alert & Oriented x3 Neuro: WNL Heart: WNL Lungs: WNL GI: WNL - {Optional Preform as Required} Abdomen: WNL - Impression Pt. Evaluated Today:Candidate for Anesthesia & Procedure: Yes - Date & Time Date: 09/17/17 Time: 09:30 Short Stay Discharge - Short Stay Discharge Admitting Diagnosis/Reason for Visit: ENCOUNTER FOR SCREENING FOR MALIGNANT NEOPLASM OF Disposition: HOME/ ROUTINE
[2017-09-17 11:41] VITALS: BP 141/61; PULSE 64; RESP 12; O2SAT 100
== END 2017-09-17 11:23 | disposition home or self-care (01) ==
LOC: C.ENDO 07:04
PROVIDERS: ATTEND Internal Medicine Gastroenterology
DX: Z12.11 Encounter for screening for malignant neoplasm of colon (principal); K57.90 Diverticulosis of intestine, part unspecified, without perforation or abscess without bleeding; I12.0 Hypertensive chronic kidney disease with stage 5 chronic kidney disease or end stage renal disease; N18.6 End stage renal disease; E11.22 Type 2 diabetes mellitus with diabetic chronic kidney disease
CPT/HCPCS: 45378; 82948; J2704; J3010; J7120